=== PATIENT | female | born 1975 | race Two or more races ===

== ENCOUNTER 2020-11-16 11:26 | Inpatient (IN) | payer MEDICAID, OTHER ==
[~2020-11-16] VITALS: Ht 177.8 cm; Wt 141.9 kg
[2020-11-16 11:59] LABS: Basophils # (auto) 0.1 10 ^3/uL (0-0.2); Basophils % (auto) 1.1 % (0.0-2.0); Eosinophils # (auto) 0.1 10 ^3/uL (0-0.8); Eosinophils % (auto) 2.4 % (0.0-7.0); Hematocrit 39.5 % (36.0-46.0); Hemoglobin 13.1 g/dL (12.2-16.2); Lymphocytes # (auto) 1.6 10 ^3/uL (0.4-5.4); Lymphocytes % (auto) 27.7 % (10.0-50.0); Mean Corpuscular Hemoglobin 30.7 pg (28.0-32.0); Mean Corpuscular Hgb Conc. 33.3 g/dL (32.0-36.0); Mean Corpuscular Volume 92.3 fL (80.0-100.0); Monocytes # (auto) 0.5 10 ^3/uL (0-1.3); Monocytes % (auto) 7.9 % (0.0-12.0); Neutrophils # (auto) 3.6 10 ^3/uL (1.6-8.6); Neutrophils % (auto) 60.9 % (37.0-80.0); Nucleated Red Blood Cells % 0.1 %; Red Blood Cells 4.28 10^6/uL (4.0-5.20); Red Cell Distribution Width 13.1 % (11.8-14.3); White Blood Cell 5.9 10^3/uL (4.4-10.8)
[2020-11-16 12:12] LABS: Chloride 108 mmol/L (98-107); Potassium 4.5 mmol/L (3.5-5.1); Sodium 137 mmol/L (136-145)
[2020-11-16 12:27] LABS: Alanine Aminotransferase 17 U/L (13-56); Albumin 3.4 g/dL (3.4-5.0); Alkaline Phosphatase 51 U/L (45-117); Anion Gap 4 (5-15); Aspartate Aminotransferase 8 U/L (15-37); BUN/Creatinine Ratio 9.7; Bilirubin, Total 0.4 mg/dL (0.2-1.0); Blood Urea Nitrogen 9 mg/dL (7-18); Carbon Dioxide 25 mmol/L (21-32); GFR African American 85 mL/min; GFR Non-African American 70 mL/min; Glucose 94 mg/dL (74-106); Lipase 211 U/L (73-393); Total Protein 8.1 g/dL (6.4-8.2)
[2020-11-16 17:30] LABS: Urine Bacteria FEW /hpf (None Seen); Urine Blood Negative /uL (Negative); Urine Mucus FEW (None Seen); Urine WBC 1 /hpf (0 - 5)
[2020-11-16] MEDS ORDERED: ONDANSETRON HCL 4 MG/2 ML VIAL IV PRN (18:45)
[2020-11-16] MEDS ORDERED: MORPHINE SULFATE INJECTION 2 MG/ML SYRG IV PRN (18:45)
[2020-11-16] MEDS ORDERED: NITROGLYCERIN 0.4 MG SL TAB SL PRN (18:45)
[2020-11-16] MEDS: MORPHINE SULFATE INJECTION 2 MG/ML SYRG IV PRN (20:53)
[2020-11-16 23:41] VITALS: BP_SYST 105; BP_SYST 95; BP_DIAS 68
[2020-11-17] MEDS: MORPHINE SULFATE INJECTION 2 MG/ML SYRG IV PRN ×2 (00:31→21:50)
[2020-11-17 05:00] VITALS: BP 103/69
[2020-11-17 05:12] LABS: Basophils # (auto) 0 10 ^3/uL (0-0.2); Basophils % (auto) 0.8 % (0.0-2.0); Eosinophils # (auto) 0.2 10 ^3/uL (0-0.8); Eosinophils % (auto) 3.1 % (0.0-7.0); Hematocrit 39.3 % (36.0-46.0); Hemoglobin 13.4 g/dL (12.2-16.2); Lymphocytes # (auto) 2.3 10 ^3/uL (0.4-5.4); Mean Corpuscular Hemoglobin 31.5 pg (28.0-32.0); Mean Corpuscular Hgb Conc. 34.1 g/dL (32.0-36.0); Mean Corpuscular Volume 92.4 fL (80.0-100.0); Monocytes # (auto) 0.4 10 ^3/uL (0-1.3); Monocytes % (auto) 7.1 % (0.0-12.0); Neutrophils # (auto) 2.9 10 ^3/uL (1.6-8.6); Red Blood Cells 4.25 10^6/uL (4.0-5.20); Red Cell Distribution Width 12.9 % (11.8-14.3); White Blood Cell 5.9 10^3/uL (4.4-10.8)
[2020-11-17 05:33] LABS: INR 1.04 (0.9-1.15); Partial Thromboplastin Time 31.1 sec (23.6-33.0)
[2020-11-17 05:43] LABS: Potassium 3.7 mmol/L (3.5-5.1)
[2020-11-17 05:47] LABS: BUN/Creatinine Ratio 10.3; Calcium 8.7 mg/dL (8.5-10.1)
[2020-11-17 08:30] VITALS: BP 114/61
[2020-11-17 09:00] VITALS: BP 114/61
[2020-11-17 13:00] VITALS: BP 114/63
[2020-11-17 17:00] VITALS: BP 109/67
[2020-11-17 22:00] VITALS: BP 103/57
[2020-11-18 04:25] VITALS: BP 102/65
[2020-11-18 08:30] VITALS: BP 101/63
[2020-11-18 09:52] VITALS: BP 101/63
[2020-11-18 13:00] VITALS: BP 108/57
[2020-11-18] MEDS ORDERED: LIDOCAINE 1%-Mpf/Epinephrine 1:200,000 ONE (14:25)
[2020-11-18] MEDS ORDERED: BUPIVACAINE 0.25% INJ 50ML VIAL ONE ×2 (14:26→15:56)
[2020-11-18] MEDS ORDERED: ceFAZolin 1GM/50ML 100 ML IV ONE (14:54)
[2020-11-18] MEDS ORDERED: SUCCINYLCHOLINE CHLORIDE 20 MG/ML 10ML VIAL IV ONE (15:31)
[2020-11-18] MEDS ORDERED: FAMOTIDINE (10MG/ML) 2ML VL IV ONE (16:09)
[2020-11-18] MEDS ORDERED: GLYCOPYRROLATE 0.2 MG/ML 1ML VIAL ONE ×2 (16:11→17:26)
[2020-11-18] MEDS ORDERED: HYDROmorphone HCL 2 MG/ML VL ONE (16:11)
[2020-11-18] MEDS ORDERED: ONDANSETRON HCL 4 MG/2 ML VIAL ONE (16:11)
[2020-11-18] MEDS ORDERED: MIDAZOLAM HCL 2MG/2ML 2ml VIAL (1mg/ml) ONE (16:11)
[2020-11-18] MEDS ORDERED: LIDOCAINE 2% (LOCAL ANESTH.) PF 5ml SDV ONE (16:11)
[2020-11-18] MEDS ORDERED: fentaNYL CITRATE 100 MCG/2 ML VL ONE ×2 (16:11→17:12)
[2020-11-18] MEDS ORDERED: DexAMETHasone SOD PHOS 10MG/1ML VIAL INJ ONE (16:11)
[2020-11-18] MEDS ORDERED: KETOROLAC TROMETH 30 MG/ML 1ML VIAL ONE (16:11)
[2020-11-18] MEDS ORDERED: PROPOFOL 10 MG/ML 20 ML IV ONE (16:11)
[2020-11-18] MEDS ORDERED: NEOSTIGMINE 1 MG/ML INJ (10mg/10ML VIAL) ONE (17:26)
[2020-11-18] MEDS ORDERED: ACETAMINOPHEN/CODEINE#3 (300/30mg) TAB PO PRN (17:30)
[2020-11-18] MEDS ORDERED: ONDANSETRON HCL 4 MG/2 ML VIAL IV PRN ×2 (17:30→18:00)
[2020-11-18] MEDS ORDERED: HYDROmorphone HCL 2 MG/ML VL IV PRN (18:00)
[2020-11-18] MEDS: D5W/SOD CHL 0.45%/KCL 20MEQ 1,000 ML IV SCH (19:25)
[2020-11-18 20:05] VITALS: BP 124/82
[2020-11-18] MEDS: HYDROmorphone HCL 2 MG/ML VL IV PRN (21:32)
[2020-11-18 22:00] VITALS: BP 124/82
[2020-11-19] MEDS: D5W/SOD CHL 0.45%/KCL 20MEQ 1,000 ML IV SCH (01:50)
[2020-11-19 05:00] VITALS: BP 111/68
[2020-11-19 05:45] LABS: Hematocrit 38.3 % (36.0-46.0); Mean Corpuscular Hemoglobin 31.5 pg (28.0-32.0); Mean Corpuscular Volume 92.8 fL (80.0-100.0); Red Blood Cells 4.13 10^6/uL (4.0-5.20); Red Cell Distribution Width 13.1 % (11.8-14.3); White Blood Cell 7.9 10^3/uL (4.4-10.8)
[2020-11-19 06:19] LABS: Band Neutrophils % (manual) 0; Basophils % (manual) 0 (0.0-2.0); Blast Cells 0; Eosinophils % (manual) 0 (0-7); Metamyelocytes % 0; Myelocytes % 0; Promyelocytes % 0; Reactive Lymphocytes 0
[2020-11-19 06:49] LABS: Lymphocytes % (manual) 11 (10.0-50.0); Monocytes % (manual) 1 (0-12)
[2020-11-19] MEDS: HYDROmorphone HCL 2 MG/ML VL IV PRN (08:44)
[2020-11-19 09:00] VITALS: BP 110/59
[2020-11-19] MEDS ORDERED: CEFTRIAXONE SODIUM 2 GM in D5W 5% 50 ML IV SCH (10:00)
[2020-11-19] MEDS ORDERED: PANTOPRAZOLE 40 MG/10 ML VIAL INJ IV SCH (10:00)
[2020-11-19 12:42] VITALS: BP 134/62
[2020-11-19 13:05] LABS: Hepatitis B Surface Antigen Negative (Negative)
[2020-11-19 15:22] LABS: Hepatitis A Total Antibody Negative; Hepatitis B Core Total AB Negative; Hepatitis B Surface Antibody Negative; Hepatitis C Antibody Negative (Negative)
[2020-11-19 16:47] VITALS: BP 117/65
== END 2020-11-19 19:30 | disposition home or self-care (01) | DRG 263 ==
LOC: ER 11:26 → OVERFLOW 18:31 → WEST WING 23:05
PROVIDERS: ADMIT Nurse Practitioner Acute Care; ATTEND Family Medicine
PROC: 0FT44ZZ Resection of Gallbladder, Percutaneous Endoscopic Approach (ICD-10-PCS; principal; 2020-11-18 16:21)
DX: K80.66 Calculus of gallbladder and bile duct with acute and chronic cholecystitis without obstruction (principal); E66.01 Morbid (severe) obesity due to excess calories; Z68.41 Body mass index [BMI] 40.0-44.9, adult; F17.200 Nicotine dependence, unspecified, uncomplicated; Z20.822 Contact with and (suspected) exposure to COVID-19; Z87.11 Personal history of peptic ulcer disease
CPT/HCPCS: 36415; 71045; 74181; 76705; 80048; 80053; 81001; 82247; 82378; 83690; 84484; 84702; 85007; 85025; 85027; 85610; 85730; 86304; 86704; 86706; 86708; 86803; 86850; 86900; 86901; 87340; 87426; 96374; 96375; C9113; G0378; J0330; J0690; J0696; J1100; J1885; J2001; J2250; J2405; J2704; J3490; J7060

== ENCOUNTER 2020-12-12 12:31 | Emergency (ER) | payer MEDICAID ==
[~2020-12-12] VITALS: Ht 177.8 cm; Wt 137.9 kg
[2020-12-12] MEDS ORDERED: KETOROLAC TROMETH 60MG/2ML VIAL IM ONE (13:30)
[2020-12-12 13:53] VITALS: BP 107/75
== END 2020-12-12 13:53 | disposition home or self-care (01) ==
LOC: ER 12:31
DX: M17.12 Unilateral primary osteoarthritis, left knee (principal); E66.01 Morbid (severe) obesity due to excess calories; Z68.41 Body mass index [BMI] 40.0-44.9, adult
CPT/HCPCS: 73562; 96372; 99283; J1885

== ENCOUNTER 2021-07-12 18:21 | Emergency (ER) | payer MEDICAID ==
[~2021-07-12] VITALS: Ht 175.3 cm; Wt 129.3 kg
[2021-07-12 19:28] LABS: Basophils # (auto) 0 10 ^3/uL (0-0.2); Basophils % (auto) 0.7 % (0.0-2.0); Eosinophils # (auto) 0.1 10 ^3/uL (0-0.8); Eosinophils % (auto) 1.5 % (0.0-7.0); Hematocrit 35.9 % (36.0-46.0); Hemoglobin 12.3 g/dL (12.2-16.2); Lymphocytes # (auto) 1.8 10 ^3/uL (0.4-5.4); Lymphocytes % (auto) 30.2 % (10.0-50.0); Mean Corpuscular Hemoglobin 31.1 pg (28.0-32.0); Mean Corpuscular Hgb Conc. 34.3 g/dL (32.0-36.0); Mean Corpuscular Volume 90.8 fL (80.0-100.0); Monocytes # (auto) 0.4 10 ^3/uL (0-1.3); Monocytes % (auto) 6.4 % (0.0-12.0); Neutrophils # (auto) 3.7 10 ^3/uL (1.6-8.6); Neutrophils % (auto) 61.2 % (37.0-80.0); Nucleated Red Blood Cells % 0.1 %; Red Blood Cells 3.95 10^6/uL (4.0-5.20); Red Cell Distribution Width 13.5 % (11.8-14.3)
[2021-07-12 19:54] LABS: Albumin 3.3 g/dL (3.4-5.0); BUN/Creatinine Ratio 11.1; Calcium 8.8 mg/dL (8.5-10.1)
[2021-07-12 19:57] LABS: Bilirubin, Total 0.3 mg/dL (0.2-1.0); Total Protein 7.6 g/dL (6.4-8.2)
[2021-07-12 20:07] LABS: Urine Bacteria NONE SEEN /hpf (None Seen); Urine Blood Negative /uL (Negative); Urine Specific Gravity 1.006 (1.001-1.035); Urine WBC 1 /hpf (0 - 5)
[2021-07-12] MEDS ORDERED: PANT40TA2 PO (21:29)
[2021-07-12 21:55] VITALS: BP 131/84
== END 2021-07-12 21:55 | disposition home or self-care (01) ==
LOC: ER 18:38
DX: K21.9 Gastro-esophageal reflux disease without esophagitis (principal)
CPT/HCPCS: 36415; 74176; 80053; 81001; 82150; 83690; 85025